=== PATIENT | female | born 2005 | race Caucasian/White ===

== ENCOUNTER 2025-05-23 21:46 | Emergency (ER) | payer SELFPAY ==
[~2025-05-23] VITALS: Ht 162.6 cm; Wt 50.0 kg
[2025-05-23 22:00] VITALS: O2SAT 98
[2025-05-24 01:04] VITALS: BP 97/61; PULSE 60; RESP 12; O2SAT 99
== END 2025-05-24 01:08 | disposition home or self-care (01) ==
LOC: ER 21:56
DX: T51.0X1A Toxic effect of ethanol, accidental (unintentional), initial encounter (principal); R41.82 Altered mental status, unspecified; Y92.89 Other specified places as the place of occurrence of the external cause
CPT/HCPCS: 99283